=== PATIENT | male | born 1950 | race Caucasian/White ===

== ENCOUNTER 2018-02-14 14:31 | Day surgery (SDC) | payer BC, MEDICARE ==
[2018-02-06 08:24] VITALS: BP 138/95
[~2018-02-14] VITALS: Ht 180.3 cm; Wt 84.6 kg
[~2018-02-14 14:31] MED LIST: ACET325T14 PO; AMBIEN CR PO; BACITRACIN 50,000 UNIT ONE; BUPIVACAINE/PF-EPI 0.5% 1:200K ONE; CITRACAL PO; HYDROCHLOROTHIAZIDE PO; LEXAPRO PO; MELOXICAM PO; MULT-516 PO; PANTOPRAZOLE PO; STATIN PO; THROMBIN 5,000 UNIT VIAL TP ONE
[2018-02-14] MEDS ORDERED: LACTATED RINGERS 1,000 ML IV SCH (15:13)
[2018-02-14] MEDS ORDERED: ONDANSETRON ODT 8 MG PO ONE (16:30)
[2018-02-14] MEDS ORDERED: GABAPENTIN 300 MG CAPSULE PO ONE (16:30)
[2018-02-14] MEDS ORDERED: ACETAMINOPHEN 500 MG TABLET PO ONE (16:30)
[2018-02-14] MEDS ORDERED: BUPIVACAINE/PF-EPI 0.5% 1:200K ONE (17:12)
[2018-02-14] MEDS ORDERED: FENTANYL PF 100 MCG/2ML ONE ×2 (18:13)
[2018-02-14] MEDS ORDERED: MIDAZOLAM 1 MG/ML, 2ML ONE (18:13)
[2018-02-14] MEDS ORDERED: SUCCINYLCHOLINE 20 MG/ML, 10ML ONE (18:14)
[2018-02-14] MEDS ORDERED: ROCURONIUM 10 MG/ML,10ML ONE (18:14)
[2018-02-14] MEDS ORDERED: LIDOCAINE GEL 2%, 5ML ONE (18:37)
[2018-02-14] MEDS ORDERED: MIDAZOLAM 1 MG/ML, 2ML IV PRN (19:00)
[2018-02-14] MEDS ORDERED: LABETALOL 5MG/ML, 20ML IV PRN (19:00)
[2018-02-14] MEDS ORDERED: ALBUTEROL/IPRATROPIUM 2.5MG/0.5MG, 3 ML NPPB PRN (19:00)
[2018-02-14] MEDS ORDERED: ONDANSETRON 2MG/ML, 2ML IV PRN ×2 (19:00→21:00)
[2018-02-14] MEDS ORDERED: HYDROmorphone 1 MG/ML, 1ML IV PRN (19:00)
[2018-02-14] MEDS ORDERED: PROMETHAZINE 25 MG/ML, 1ML IV PRN (19:00)
[2018-02-14] MEDS ORDERED: FENTANYL PF 100 MCG/2ML IV PRN (19:00)
[2018-02-14] MEDS ORDERED: MEPERIDINE/PF 25MG/0.5ML IVPush PRN (19:00)
[2018-02-14] MEDS ORDERED: SCOPOLAMINE PATCH, 1.5MG PATCH.TD72 TD PRN (19:00)
[2018-02-14] MEDS ORDERED: OXYcodone 5 MG/5 ML ORAL.SOL UDC PO PRN (19:00)
[2018-02-14] MEDS ORDERED: DEXAMETHASONE 4 MG/ML, 1ML ONE (19:14)
[2018-02-14] MEDS ORDERED: PROPOFOL 10 MG/ML, 20ML ONE (19:14)
[2018-02-14] MEDS ORDERED: CEFAZOLIN 1,000 MG ONE (19:14)
[2018-02-14] MEDS ORDERED: OXYcodone 5 MG/5 ML ORAL.SOL UDC ONE (19:51)
[2018-02-14] MEDS ORDERED: PHARMACY MAY ADJ FOR RENAL FX MC PRN (20:30)
[2018-02-14] MEDS ORDERED: OXYcodone/APAP 5/325MG TABLET PO PRN (21:00)
[2018-02-14] MEDS ORDERED: HYDROmorphone 2MG TABLET PO PRN (21:00)
[2018-02-14] MEDS ORDERED: NS + 20MEQ KCL 1,000 ML IV SCH (21:00)
[2018-02-14] MEDS ORDERED: BISACODYL 10 MG SUPP PR PRN (21:00)
[2018-02-14] MEDS ORDERED: ZOLPIDEM 10MG TABLET PO PRN (21:00)
[2018-02-14] MEDS ORDERED: HYDROmorphone 2 MG/ML, 1ML IM PRN (21:00)
[2018-02-14] MEDS ORDERED: AMLODIPINE 5 MG TABLET PO SCH (21:00)
[2018-02-14] MEDS ORDERED: MAGNESIUM HYDROXIDE 8%, 30ML UDC PO PRN (21:00)
[2018-02-14] MEDS ORDERED: ATORVASTATIN 10 MG TABLET PO SCH (21:00)
[2018-02-14] MEDS ORDERED: DIPHENHYDRAMINE 50 MG/ML, 1ML IVPush PRN (21:30)
[2018-02-14] MEDS ORDERED: DIPHENHYDRAMINE 25 MG CAPSULE PO PRN (21:30)
[2018-02-14] MEDS ORDERED: TIZANIDINE 2MG TABLET PO PRN (21:30)
[2018-02-14] MEDS ORDERED: HYDROcodone/APAP 10/325 MG TABLET PO PRN (21:30)
[2018-02-15 02:04] VITALS: BP 117/65
[2018-02-15] MEDS: CEFAZOLIN PMX 1GM/50ML 50 ML IVPB SCH ×2 (02:51→08:48)
[2018-02-15 07:15] VITALS: BP 120/69
[2018-02-15] MEDS ORDERED: AMLO5TAB2 PO (08:58)
[2018-02-15] MEDS ORDERED: HYDROCHLOROTHIAZIDE 12.5 MG CAPSULE PO SCH (09:00)
[2018-02-15] MEDS ORDERED: SENNA/DOCUSATE TABLET PO SCH (09:00)
[2018-02-15] MEDS ORDERED: OXYC-302 PO (09:04)
[2018-02-15] MEDS ORDERED: TIZA2TAB PO (09:06)
[2018-02-15 12:28] VITALS: BP 127/74
[2018-02-15] MEDS ORDERED: POLY17PO5 PO (13:37)
== END 2018-02-15 13:55 | disposition home or self-care (01) ==
LOC: OR 14:31 → 4NOR 20:24 → OR 21:11 → 4NOR 21:12 → UNDOADMIN 21:12 → 4NOR 02-15 13:19 → DCLOUNGE 02-15 13:19 → UNDODISIN 02-15 13:55 → OR 02-15 13:55
PROVIDERS: ATTEND Neurological Surgery
DX: M51.16 Intervertebral disc disorders with radiculopathy, lumbar region (principal); M48.061 Spinal stenosis, lumbar region without neurogenic claudication; M43.16 Spondylolisthesis, lumbar region; I10 Essential (primary) hypertension; E78.00 Pure hypercholesterolemia, unspecified; K21.9 Gastro-esophageal reflux disease without esophagitis; Z87.39 Personal history of other diseases of the musculoskeletal system and connective tissue; Z98.890 Other specified postprocedural states; Z72.89 Other problems related to lifestyle
CPT/HCPCS: 63030; 72100; 97162; 97165; J0330; J0690; J1100; J2250; J2270; J2704; J3010; J3480; Q0162